=== PATIENT | male | born 1975 | race Caucasian/White ===

== ENCOUNTER 2021-10-17 17:26 | Emergency (ER) | payer BC ==
[2021-10-17 18:09] LABS: HEMOGLOBIN 16.5 gm/dl (14.0-17.5); RED BLOOD COUNT 5.16 M/UL (4.20-5.50); WHITE BLOOD COUNT 11.9 K/UL (4.5-11.0)
[2021-10-17 19:17] LABS: BUN/CREATININE RATIO 10 (0-10)
[2021-10-17] MEDS ORDERED: PROTONIX20 MG PO (21:29)
== END 2021-10-17 21:30 | disposition home or self-care (01) ==
LOC: ER1 17:26
PROVIDERS: Student in an Organized Health Care Education/Training Program
DX: K21.9 Gastro-esophageal reflux disease without esophagitis (principal); I10 Essential (primary) hypertension; Z51.81 Encounter for therapeutic drug level monitoring
CPT/HCPCS: 71045; 80053; 80307; 81001; 82550; 82553; 83880; 84484; 85025; 85610; 85730; 93005; 99285